=== PATIENT | male | born 1950 | race Caucasian/White ===

== ENCOUNTER → 2016-09-05 | Outpatient (CLI) | payer OTHER ==
--- NOTE | 2016-09-05 16:41 | DX ---
Right foot series 3 views 1339 hours. History: Right foot redness and swelling for 3 weeks. Suspect gout. Findings: There is subtle erosion along the medial aspect distal shaft right first toe proximal phala nx near the interphalangeal joint with mild adjacent soft tissue swelling. There is also mild soft ti ssue swelling adjacent to the distal head of the first metatarsal. There is erosion versus fracture a ssociated with the medial sesamoid along the plantar aspect of the first metatarsal. Rule out infecti on. The remaining osseous structures are normal in appearance. No fractures are seen. There is no gas in the soft tissues. Impression: 1. Erosion along the medial margin distal shaft right first toe proximal phalanx. This could be secon catalina to gout. 2. Erosion or destructive process associated with the medial sesamoid along the plantar aspect of the first distal metatarsal head. Rule out infection versus erosion possibly from gout. Rule out trauma.
== END ==
LOC: CIMAGING 13:10
PROVIDERS: ATTEND Internal Medicine
DX: M85.871 Other specified disorders of bone density and structure, right ankle and foot (principal)
CPT/HCPCS: 73630-PO

== ENCOUNTER → 2016-11-17 | Outpatient (CLI) | payer OTHER | LOC: FIMAGING 14:10 | PROVIDERS: ATTEND Orthopaedic Surgery | DX: M19.071 Primary osteoarthritis, right ankle and foot (principal); M79.89 Other specified soft tissue disorders; R60.9 Edema, unspecified; M65.271 Calcific tendinitis, right ankle and foot ==

== ENCOUNTER → 2018-06-02 | Outpatient (CLI) | payer OTHER | LOC: FIMAGING 09:23 | PROVIDERS: ATTEND Orthopaedic Surgery | DX: M16.0 Bilateral primary osteoarthritis of hip (principal); M51.36 Other intervertebral disc degeneration, lumbar region ==

== ENCOUNTER 2018-06-12 09:27 | Inpatient (IN) | payer OTHER ==
[~2018-06-12 09:27] MED LIST: POVIDONE-IODINE 20 ML in SODIUM CL IRRIG SOLUTION 500 ML IRR ONE; ROPIVACAINE 0.2% 80 MG, EPINEPHrine 0.2 MG, KETOROLAC TROMETHAMINE 30 MG in SYRINGE 0 ML IU ONE; TRANEXAMIC ACID 1,000 MG in NS 100 ML IV ONE
[2018-06-12] MEDS ORDERED: FAMOTIDINE 20 MG TAB PO ONE (10:12)
[2018-06-12] MEDS ORDERED: DEXAMETHASONE 4 MG/ML VIAL IVP ONE (10:12)
[2018-06-12] MEDS ORDERED: ACETAMINOPHEN 325 MG TAB PO ONE (10:12)
[2018-06-12] MEDS ORDERED: ceFAZolin 2 GM/DEXTROSE 100 ML IV ONE (10:12)
[2018-06-12] MEDS ORDERED: LR 1,000 ML IV ONE (10:13)
[2018-06-12] MEDS ORDERED: LIDOCAINE 1% 2 ML INJ ID PRN (10:13)
--- NOTE | 2018-06-12 11:17 | POSTANESTH ---
Post Anesthetic Evaluation Cardiovascular Status: Normal, Stable Respiratory Status: Normal, Stable Level of Consciousness/Mental Status: Can Participate in Eval, Mildly Sleepy, Arousable Pain Control: Adequate, Prn Tx Ordered Nausea/Vomiting Control: Adequate, Prn Tx Ordered Complications Possibly Related to Anesthesia: None Noted (SAB wearing off - pt able to move LE, but no pain at this time)
--- NOTE | 2018-06-12 11:19 | PDANEPAE ---
ANE History of Present Illness 67 yo male with OA for R STACEY. ANE Past Medical History - Cardiovascular History Hx Hypertension: Yes Hx Arrhythmias: No Hx Chest Pain: No Hx Coronary Artery / Peripheral Vascular Disease: No Hx CHF / Valvular Disease: No Hx Palpitations: No Cardiovascular History Comment: hypercholesteremia - Pulmonary History Hx COPD: No Hx Asthma/Reactive Airway Disease: No Hx Recent Upper Respiratory Infection: No Hx Oxygen in Use at Home: No Hx Sleep Apnea: No Sleep Apnea Screening Result - Last Documented: Positive Pulmonary History Comment: + ROBINSON screen, no formal testing - Neurologic History Hx Cerebrovascular Accident: No Hx Seizures: No Hx Dementia: No - Endocrine History Hx Diabetes: Yes Hypothyroid: Yes Obesity: no - Renal History Hx Renal Disorders: No - Liver History Hx Hepatic Disorders: No - Neurological & Psychiatric Hx Hx Neurological and Psychiatric Disorders: No - Cancer History Hx Cancer: No - Congenital Disorder History Hx Congenital Disorders: No - GI History Hx Gastrointestinal Disorders: Yes Gastrointestinal History Comment: GERD - Other Health History Other Health History: DM type 2 - 06/19 HgbA1C 6.3. wears glasses. states mild hearing loss - Chronic Pain History Chronic Pain: Yes (hip) - Surgical History Prior Surgeries: hand surgery to repair tendons from eel bite. bicep tear repair. cholecystectomy. t&a as child ANE Review of Systems Review of systems is: negative Review of Systems: - Exercise capacity METS (RN): 5 METS - Systems Muscolosketal: Reports: joint pain ANE Patient History - Allergies Allergies/Adverse Reactions: No Known Allergies Allergy (Verified 06/12/18 10:59) - Home Medications Home Medications: Atorvastatin Calcium [Lipitor 20 mg (*)] 20 mg PO DAILY 05/31/18 [Last Taken Unknown] Herbals/Supplements -Info Only 1 ea PO DAILY 05/31/18 [Last Taken 06/11/18] Levothyroxine [Synthroid 150 mcg (*)] 150 mcg PO DAILY06 05/31/18 [Last Taken ] Lisinopril [Zestril 10 mg (*)] 10 mg PO DAILY 05/31/18 [Last Taken 06/11/18] Multivitamins [Multivitamin (*)] 1 each PO DAILY 05/31/18 [Last Taken 06/04/18] Omeprazole 20 mg PO DAILY 05/31/18 [Last Taken 06/12/18] metFORMIN HCL [Glucophage 500 mg (*)] 500 mg PO BIDMEAL 05/31/18 [Last Taken 06/19] - NPO status NPO Since - Liquids (Date): 06/11/18 NPO Since - Liquids (Time): 18:00 NPO Since - Solids (Date): 06/11/18 NPO Since - Solids (Time): 18:00 - Anes Hx Anes Hx: no prior problems - Smoking Hx Smoking Status: Never smoked - Alcohol Use Alcohol Use: Occasionally (4/week) - Family Anes Hx Family Hx Anesthesia Complications: none ANE Labs/Vital Signs - Vital Signs Blood Pressure: 178/78 Heart Rate: 63 Respiratory Rate: 20 O2 Sat (%): 96 Height: 177.8 cm Weight: 86.183 kg ANE Physical Exam - Airway Neck exam: decreased ROM Mallampati Score: Class 2 - Pulmonary Pulmonary: clear to auscultation - Cardiovascular Cardiovascular: regular rate and rhythym - ASA Status ASA Status: II ANE Anesthesia Plan Anesthesia Plan: spinal
[2018-06-12] MEDS ORDERED: LIDOCAINE 2% 2 ML INJ ONE (13:08)
[2018-06-12] MEDS ORDERED: fentaNYL 100 MCG/2 ML INJ ONE (13:09)
[2018-06-12] MEDS ORDERED: PROPOFOL 200 MG/20 ML VIAL ONE ×2 (13:09→16:05)
[2018-06-12] MEDS ORDERED: PROPOFOL/EMULSION 500 MG/50 ML BOTTLE IV ONE ×2 (13:09→14:21)
[2018-06-12] MEDS ORDERED: BUPIVACAINE/DEXTROSE 7.5MG/ML 2 ML SPINAL AMP SP ONE (13:09)
--- NOTE | 2018-06-12 13:11 | PDHPUP ---
History & Physical Update H&P update statement: This history and physical update is based on an assessment of the patient which was completed after admission or registration (within 24 hours), but prior to the surgery/procedure. H&P update: H&P reviewed & patient examined, no change in patient's condition since H&P completed (Hgb A1c 6.3 on 06/11)
[2018-06-12] MEDS ORDERED: BUPIVACAINE/EPI 0.5% 30 ML SDV ONE (13:12)
[2018-06-12] MEDS ORDERED: fentaNYL 100 MCG/2 ML INJ IVP PRN (16:12)
[2018-06-12] MEDS ORDERED: NALOXONE HCL 0.4 MG/ML INJ IVP PRN (16:12)
[2018-06-12] MEDS ORDERED: oxyCODONE IR 5 MG TAB PO PRN (16:12)
[2018-06-12] MEDS ORDERED: LR 500 ML IV PRN (16:12)
[2018-06-12] MEDS ORDERED: ONDANSETRON 4 MG/2 ML VIAL IVP PRN ×2 (16:12→16:31)
[2018-06-12] MEDS ORDERED: DIAZEPAM 5 MG/ML 1 ML SYR IVP PRN (16:12)
[2018-06-12] MEDS ORDERED: ACETAMINOPHEN 500 MG TAB PO PRN (16:12)
[2018-06-12] MEDS ORDERED: ONDANSETRON DISINTEGRATING 4 MG TAB PO PRN (16:31)
[2018-06-12] MEDS ORDERED: CYCLOBENZAPRINE 10 MG TAB PO PRN (16:31)
[2018-06-12] MEDS ORDERED: DIPHENOXYLATE/ATROPINE LOMOTIL 1 TAB PO PRN (16:31)
[2018-06-12] MEDS ORDERED: MAGNESIUM HYDROXIDE 30 ML UDCUP PO PRN (16:31)
[2018-06-12] MEDS ORDERED: PROMETHAZINE HCL 25 MG SUPPR PR PRN (16:31)
[2018-06-12] MEDS ORDERED: TEMAZEPAM 15 MG CAP PO PRN (16:31)
[2018-06-12] MEDS ORDERED: diphenhydrAMINE 25 MG CAP PO PRN (16:31)
[2018-06-12] MEDS ORDERED: BISACODYL 10 MG SUPP PR PRN (16:31)
[2018-06-12] MEDS ORDERED: POLYETHYLENE GLYCOL 3350 17 GM PKT PO PRN (16:31)
[2018-06-12] MEDS ORDERED: METOCLOPRAMIDE 10 MG/2 ML VIAL IVP PRN (16:31)
[2018-06-12] MEDS ORDERED: LACTULOSE 20 GM/30 ML UDCUP PO PRN (16:31)
[2018-06-12] MEDS ORDERED: PROMETHAZINE HCL 25 MG/ML INJ IVP PRN (16:31)
--- NOTE | 2018-06-12 16:31 | POSTOPPROG ---
Post Op Note Date of Operation: 06/12/18 Surgeon: Kevin Seay Tapper Hand: CATIE Alvarez Anesthesiologist: Willson MD Anesthesia: IV Sedation, Spinal Pre-op Diagnosis: Right Hip OA Post-op Diagnosis: same Procedure: R ant STACEY Inf/Abcess present in the surg proc area at time of surgery?: No EBL: 100-500 (300) Drains: Hemovac
--- NOTE | 2018-06-12 16:58 | PDMN ---
Medical Necessity Medical necessity: [facility] IP only surgery; cpt 83948 R STACEY
[2018-06-12] MEDS ORDERED: LR 1,000 ML IV SCH (17:00)
[2018-06-12] MEDS: ACETAMINOPHEN 325 MG TAB PO SCH ×2 (18:07→23:44)
[2018-06-12] MEDS: metFORMIN HCL 500 MG TAB PO SCH (18:07)
[2018-06-12] MEDS: oxyCODONE IR 5 MG TAB PO PRN ×2 (20:08→23:44)
[2018-06-12] MEDS: SENNOSIDES/DOCUSATE SODIUM TAB PO SCH (20:09)
[2018-06-12] MEDS: ASPIRIN 81 MG CHEWABLE TAB PO SCH (20:09)
[2018-06-12] MEDS: FAMOTIDINE 20 MG TAB PO SCH (20:09)
[2018-06-12] MEDS: ceFAZolin 2 GM/DEXTROSE 100 ML IV SCH (22:57)
[2018-06-13] MEDS: oxyCODONE IR 5 MG TAB PO PRN (04:32)
[2018-06-13] MEDS: ACETAMINOPHEN 325 MG TAB PO SCH (05:40)
[2018-06-13] MEDS: ceFAZolin 2 GM/DEXTROSE 100 ML IV SCH (05:41)
[2018-06-13] MEDS ORDERED: LEVOTHYROXINE 150 MCG TAB PO SCH (06:00)
--- NOTE | 2018-06-13 07:23 | SOAPPROG ---
SOAP Progress Note Assessment/Plan: Assessment: 67-year-old male postop day 1 status post right anterior approach total hip arthroplasty Plan: Weight-bearing as tolerated, PT OT DVT prophylaxis: Noam Worthington SCDs aspirin 81 mg twice daily x3 weeks Incentive spirometry 10 times per hour Minimize narcotics, wean as tolerated Follow up in 2 weeks Dispo: Home today 06/13/18 07:19 Subjective: No acute events. Pain well controlled. Denies fevers chills nausea vomiting chest pain shortness breath numbness or tingling. Ambulated yesterday evening. Objective: Vital Signs Temp Pulse Resp BP Pulse Ox 36.4 C 64 16 138/70 H 97 06/13/18 04:23 06/13/18 04:23 06/13/18 04:23 06/13/18 04:23 06/13/18 04:23 Laboratory Results 06/13/18 04:25 06/12/18 06/13/18 06/14/18 05:59 05:59 05:59 Intake Total 2360 Output Total 3970 Balance -1610 Awake alert and oriented x3 Easy nonlabored breathing Hip: Dressing Clean dry intact Minimal swelling and ecchymosis Sensation intact to light touch L3-S1 Motor intact to EHL FHL tibialis anterior gastrocsoleus Palpable DP PT pulses Thigh and calf compartments soft and compressible No calf pain - Time Spent With Patient Time Spent With Patient: 10 - Pending Discharge Pending Discharge Within 24 Hours: Yes Pending Discharge Date: 06/13/18 Pending Discharge Time: 11:00 ICD10 Worksheet Patient Problems: Problems Problem Status Onset Osteoarthritis of right hip Acute
[2018-06-13 08:03] VITALS: BP 155/85
[2018-06-13] MEDS ORDERED: ATORVASTATIN CALCIUM 20 MG TAB PO SCH (09:00)
[2018-06-13] MEDS ORDERED: PANTOPRAZOLE SODIUM 40 MG TAB PO SCH (09:00)
[2018-06-13] MEDS ORDERED: MULTIVITAMINS 1 EACH TAB PO SCH (09:00)
[2018-06-13] MEDS ORDERED: LISINOPRIL 10 MG TAB PO SCH (09:00)
[2018-06-13] MEDS: metFORMIN HCL 500 MG TAB PO SCH (09:41)
[2018-06-13] MEDS: FAMOTIDINE 20 MG TAB PO SCH (09:42)
[2018-06-13] MEDS: ASPIRIN 81 MG CHEWABLE TAB PO SCH (09:42)
[2018-06-13] MEDS: SENNOSIDES/DOCUSATE SODIUM TAB PO SCH (09:42)
--- NOTE | 2018-06-13 09:55 | ASMTLACE ---
LACE Length of stay for Answers: 2 days current admission Acuity / Level of Answers: Yes Care: Did the patient have an inpatient admission? Comorbidities - select Answers: Diabetes (uncontrolled or all that apply controlled) Opioid dependence / Chronic pain Other Notes: HTN; Hypothyroid; GERD # of Emergency department Answers: 0 visits in the last 6 months Score: 11 Date Signed: 06/13/2018 09:55 AM Electronically Signed By:MONSE Chino
--- NOTE | 2018-06-13 10:20 | ASMTCMCOM ---
CM Note CM Note Notes: Pt s/p OA of hip. PT rec outpatient. Pt declines HHC. Pt resides with and has an OT and massage therapist in his family. Pt medically stable for d/c, no CM d/c needs identified. Date Signed: 06/13/2018 10:19 AM Electronically Signed By:MONSE Chino
--- NOTE | 2018-06-13 12:13 | PDIAF ---
- Diagnosis Code Status: Full Code - Medication Management Discharge Medications: Medications to Continue on Transfer Atorvastatin Calcium [Lipitor 20 mg (*)] 20 mg PO DAILY 05/31/18 [Last Taken Unknown] Levothyroxine [Synthroid 150 mcg (*)] 150 mcg PO DAILY06 05/31/18 [Last Taken ] Lisinopril [Zestril 10 mg (*)] 10 mg PO DAILY 05/31/18 [Last Taken 06/11/18] Multivitamins [Multivitamin (*)] 1 each PO DAILY 05/31/18 [Last Taken 06/04/18] Omeprazole 20 mg PO DAILY 05/31/18 [Last Taken 06/12/18] metFORMIN HCL [Glucophage 500 mg (*)] 500 mg PO BIDMEAL 05/31/18 [Last Taken 06/19] Aspirin [Aspirin 81mg (*)] 81 mg PO BID tab.chew 06/13/18 [Last Taken Unknown] celeCOXIB [Celebrex (*)] 200 mg PO DAILY #21 cap 06/13/18 [Last Taken Unknown] Discharge Medications: Refer to the Discharge Home Medication list for PRN reason. - Orders Diet Recommendation: no restrictions on diet Diet Texture: Regular Texture Diet Wound Care Instructions: see handout Activity/Weight Bearing Restrictions: WBAT Additional Instructions: WBAT, see handout - Follow Up Care Current Providers and Referrals: Kevin Seay MD [Medical Doctor] - Shama Joy MD [Primary Care Provider] -
== END 2018-06-13 11:17 | disposition home or self-care (01) | DRG 470 ==
LOC: F3N 09:58
PROVIDERS: ADMIT Internal Medicine; ATTEND Orthopaedic Surgery
PROC: 0SR904Z Replacement of Right Hip Joint with Ceramic on Polyethylene Synthetic Substitute, Open Approach (ICD-10-PCS; principal; 2018-06-12 12:00)
PROC: 8E0Y0CZ Robotic Assisted Procedure of Lower Extremity, Open Approach (ICD-10-PCS; principal; 2018-06-12 12:00)
DX: M16.11 Unilateral primary osteoarthritis, right hip (principal); E11.9 Type 2 diabetes mellitus without complications; E78.00 Pure hypercholesterolemia, unspecified; I10 Essential (primary) hypertension; E03.9 Hypothyroidism, unspecified; G47.33 Obstructive sleep apnea (adult) (pediatric)
CPT/HCPCS: 97161-GP; 97165-GO; 97535-GO; C1713; G8978-GP-CI; G8979-GP-CI; G8980-GP-CI; G8987-GO-CI; G8988-GO-CI; G8989-GO-CI; J0171; J0690; J1100; J1885; J2704; J2795; J3010